=== PATIENT | female | born 1965 | race American Indian/Alaskan Native ===

== ENCOUNTER 2016-07-02 09:16 | Outpatient (CLI) | payer MEDICAID ==
[2016-07-02] MEDS ORDERED: XYLOCAINE TOPICAL 2% TP ONE ×2 (10:20→10:26)
== END 2016-07-02 09:17 | disposition home or self-care (01) ==
LOC: WOUND 09:16
PROVIDERS: ATTEND Podiatrist
DX: L97.921 Non-pressure chronic ulcer of unspecified part of left lower leg limited to breakdown of skin (principal); L97.521 Non-pressure chronic ulcer of other part of left foot limited to breakdown of skin; L97.311 Non-pressure chronic ulcer of right ankle limited to breakdown of skin
CPT/HCPCS: 11042; 11045; G0463

== ENCOUNTER 2016-08-13 09:52 | Outpatient (CLI) | payer MEDICAID ==
[2016-08-13] MEDS ORDERED: XYLOCAINE TOPICAL 4% TP ONE ×2 (10:56→11:16)
== END 2016-08-13 09:53 | disposition home or self-care (01) ==
LOC: WOUND 09:52
PROVIDERS: ATTEND Podiatrist
DX: L97.522 Non-pressure chronic ulcer of other part of left foot with fat layer exposed (principal); L97.312 Non-pressure chronic ulcer of right ankle with fat layer exposed; L97.323 Non-pressure chronic ulcer of left ankle with necrosis of muscle; L97.822 Non-pressure chronic ulcer of other part of left lower leg with fat layer exposed; M19.90 Unspecified osteoarthritis, unspecified site; Z89.431 Acquired absence of right foot

== ENCOUNTER 2016-08-20 09:58 | Outpatient (CLI) | payer MEDICAID ==
[2016-08-20] MEDS ORDERED: XYLOCAINE TOPICAL 4% TP ONE ×2 (10:27→14:02)
== END 2016-08-20 09:59 | disposition home or self-care (01) ==
LOC: WOUND 09:58
PROVIDERS: ATTEND Podiatrist
DX: L97.821 Non-pressure chronic ulcer of other part of left lower leg limited to breakdown of skin (principal); L97.311 Non-pressure chronic ulcer of right ankle limited to breakdown of skin; L97.321 Non-pressure chronic ulcer of left ankle limited to breakdown of skin; M19.90 Unspecified osteoarthritis, unspecified site; Z89.441 Acquired absence of right ankle

== ENCOUNTER 2016-08-27 10:17 | Outpatient (CLI) | payer MEDICAID ==
[2016-08-27] MEDS ORDERED: XYLOCAINE TOPICAL 4% TP ONE ×3 (11:06→13:11)
== END 2016-08-27 10:18 | disposition home or self-care (01) ==
LOC: WOUND 10:17
PROVIDERS: ATTEND Podiatrist
DX: L97.822 Non-pressure chronic ulcer of other part of left lower leg with fat layer exposed (principal); L97.312 Non-pressure chronic ulcer of right ankle with fat layer exposed; L97.323 Non-pressure chronic ulcer of left ankle with necrosis of muscle; M19.90 Unspecified osteoarthritis, unspecified site; Z89.421 Acquired absence of other right toe(s)

== ENCOUNTER 2016-09-10 09:48 | Outpatient (CLI) | payer MEDICAID ==
[2016-09-10] MEDS ORDERED: XYLOCAINE TOPICAL 2% TP ONE ×2 (10:13→10:25)
[2016-09-10] MEDS ORDERED: NACL 0.9% 500 ML IR ONE (10:48)
[2016-09-10] MEDS ORDERED: NACL 0.9% IR PRN (13:30)
== END 2016-09-10 09:49 | disposition home or self-care (01) ==
LOC: WOUND 09:48
PROVIDERS: ATTEND Podiatrist
DX: L97.822 Non-pressure chronic ulcer of other part of left lower leg with fat layer exposed (principal); L97.312 Non-pressure chronic ulcer of right ankle with fat layer exposed; L97.322 Non-pressure chronic ulcer of left ankle with fat layer exposed; L93.2 Other local lupus erythematosus; M19.90 Unspecified osteoarthritis, unspecified site; Z89.421 Acquired absence of other right toe(s)

== ENCOUNTER 2016-09-17 10:11 | Outpatient (CLI) | payer MEDICAID ==
[2016-09-17] MEDS ORDERED: XYLOCAINE TOPICAL 4% TP ONE ×2 (10:38→12:00)
[2016-09-17] MEDS ORDERED: XYLOCAINE TOPICAL 2% TP ONE (13:45)
== END 2016-09-17 10:12 | disposition home or self-care (01) ==
LOC: WOUND 10:11
PROVIDERS: ATTEND Podiatrist
DX: L97.312 Non-pressure chronic ulcer of right ankle with fat layer exposed (principal); L97.322 Non-pressure chronic ulcer of left ankle with fat layer exposed; L97.822 Non-pressure chronic ulcer of other part of left lower leg with fat layer exposed; L93.2 Other local lupus erythematosus; M19.90 Unspecified osteoarthritis, unspecified site; Z89.421 Acquired absence of other right toe(s)

== ENCOUNTER 2016-09-24 10:45 | Outpatient (CLI) | payer MEDICAID ==
[2016-09-24] MEDS ORDERED: XYLOCAINE TOPICAL 4% TP ONE ×2 (10:58→12:43)
== END 2016-09-24 10:46 | disposition home or self-care (01) ==
LOC: WOUND 10:45
PROVIDERS: ATTEND Podiatrist
DX: L97.311 Non-pressure chronic ulcer of right ankle limited to breakdown of skin (principal); L97.321 Non-pressure chronic ulcer of left ankle limited to breakdown of skin; L97.821 Non-pressure chronic ulcer of other part of left lower leg limited to breakdown of skin; L93.2 Other local lupus erythematosus; M19.90 Unspecified osteoarthritis, unspecified site

== ENCOUNTER 2020-07-01 06:57 | Emergency (ER) | payer MEDICAID ==
--- NOTE | 2020-07-01 07:19 | Event Note ---
ED Screening Note ED Screening Note: cc diarrhea LLE wound that she is unclear how she got it pt is sp r bka in March for a bone infection non well appearing she has stool on her gown debility does not know her meds This initial assessment/diagnostic orders/clinical plan/treatment(s) is/are subject to change based on patients health status, clinical progression and re- assessment by fellow clinical providers in the ED. Further treatment and workup at subsequent clinical providers discretion. Patient/guardian urged not to elope from the ED as their condition may be serious if not clinically assessed and managed. Initial orders include: labs/ xray
--- NOTE | 2020-07-01 08:34 | XRay Report ---
Left leg-4 views INDICATION: rle wound. COMPARISON: None. IMPRESSION: Diffusely osteopenic bones, with pretibial soft tissue wound in the mid shaft region but no periostitis or luciano bone destruction to suggest osteomyelitis. There is also severe pes planus, likely long-standing circumferential soft tissue swelling about the entire visualized leg given super imposed scattered dermal calcifications, and a radiopaque foreign body which has the appearance of a wire measuring 2.6 cm in length and tracking adjacent to the Achilles tendon along the posterior aspe ct of the distal leg. No acute fracture or malalignment. Advanced lateral compartment degenerative c hange in the knee. Signer Name: Taiwo Laguna MD Signed: 07/01/2020 8:30 AM Workstation Name: [id number]
[2020-07-01 10:34] LABS: Hematocrit 38.5 % (30.3-42.9); Hemoglobin 12.6 gm/dl (10.1-14.3); Mean Corpuscular HGB Conc 33 % (30-34); Mean Corpuscular Volume 95 fl (79-97); Platelet Count 219 K/mm3 (140-440); Red Blood Count 4.04 M/mm3 (3.65-5.03); Red Cell Distribution Width 15.8 % (13.2-15.2)
[2020-07-01 10:57] LABS: Blood Urea Nitrogen 16 mg/dL (7-17); Calcium 9.5 mg/dL (8.4-10.2); Hemolysis Index 6
[2020-07-01 11:21] LABS: BUN/Creatinine Ratio 23
[2020-07-01 11:29] LABS: Anisocytosis 1+; Total Cells Counted 50
[2020-07-01 11:30] LABS: Platelet Estimate Consistent w Auto
--- NOTE | 2020-07-01 13:22 | Emergency Department Report ---
ED General Adult HPI - General Chief complaint: Laceration/Recheck/Suture Stated complaint: LACERATION TO LEFT LEG Time Seen by Provider: 07/01/20 07:18 Source: patient Mode of arrival: Stretcher Limitations: Physical Limitation - History of Present Illness Initial comments: Patient is a 54-year-old female with history of lupus vasculitis who presents to the emergency department for evaluation of laceration sustained by unknown mechanism first noticed at 4 AM this morning when she was awoken by the bleeding. Patient notes she has ongoing antibiotics status post a right BKA done at [facility] in March with frequent wound care visits i ncluding later today and consequently has had chronic diarrhea. Patient denies known trauma, denies head injury. Patient states tetanus status is up-to-date. - Related Data Home Medications Medication Instructions Recorded Confirmed Last Taken Gabapentin 400 mg PO QID 08/10/14 04/17/15 Unknown Sertraline [Zoloft] 50 mg PO DAILY 08/10/14 04/17/15 Unknown predniSONE [Prednisone] 10 mg PO DAILY 08/10/14 04/17/15 Unknown Previous Rx's Medication Instructions Recorded Last Taken Type Oxycodone HCl/Acetaminophen 1 tab PO QID #20 tablet 08/16/14 Unknown Rx [Percocet 10/325 mg] fentaNYL [Duragesic] 25 mcg TD Q3D #10 patch 08/16/14 Unknown Rx Allergies Allergy/AdvReac Type Severity Reaction Status Date / Time aspirin Allergy Unknown Verified 03/21/13 11:05 ibuprofen Allergy Unknown Verified 05/31/14 17:25 Sulfa (Sulfonamide Allergy Unknown Verified 03/21/13 11:05 Antibiotics) ED Review of Systems ROS: Stated complaint: LACERATION TO LEFT LEG Other details as noted in HPI Comment: All other systems reviewed and negative ED Past Medical Hx - Past Medical History Hx Congestive Heart Failure: No Hx Diabetes: No Hx Arthritis: Yes (RHEUMATOID/LUPUS) Hx Asthma: No Hx COPD: No Additional medical history: 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 - Surgical History Additional Surgical History: right toe amputations - Social History Smoking Status: Never Smoker Substance Use Type: None - Medications Home Medications: Home Medications Medication Instructions Recorded Confirmed Last Taken Type Gabapentin 400 mg PO QID 08/10/14 04/17/15 Unknown History Sertraline [Zoloft] 50 mg PO DAILY 08/10/14 04/17/15 Unknown History predniSONE [Prednisone] 10 mg PO DAILY 08/10/14 04/17/15 Unknown History Oxycodone HCl/Acetaminophen 1 tab PO QID #20 tablet 08/16/14 04/17/15 Unknown Rx [Percocet 10/325 mg] fentaNYL [Duragesic] 25 mcg TD Q3D #10 patch 08/16/14 04/17/15 Unknown Rx ED Physical Exam - General Limitations: Physical Limitation General appearance: alert, in no apparent distress - Head Head exam: Present: atraumatic, normocephalic - Eye Eye exam: Present: normal appearance - ENT ENT exam: Present: mucous membranes moist - Neck Neck exam: Present: normal inspection - Respiratory Respiratory exam: Present: normal lung sounds bilaterally. Absent: respiratory distress - Cardiovascular Cardiovascular Exam: Present: regular rate, normal rhythm. Absent: systolic murmur, diastolic murmur, rubs, gallop - GI/Abdominal GI/Abdominal exam: Present: soft, normal bowel sounds - Extremities Exam Extremities exam: Present: other ((+) right BKA, (+) 10cm elliptical laceration to left anterior lower leg, (+) chronis venous discoloration right ankle) - Back Exam Back exam: Present: normal inspection - Neurological Exam Neurological exam: Present: alert, oriented X3 - Psychiatric Psychiatric exam: Present: normal affect, normal mood - Skin Skin exam: Present: warm, rash ED Course Vital Signs 07/01/20 07/01/20 07:15 13:47 Temperature 97.5 F L 98.9 F Pulse Rate 65 64 Respiratory 18 16 Rate Blood Pressure 144/100 Blood Pressure 151/96 [Right] O2 Sat by Pulse 98 100 Oximetry - Reevaluation(s) Reevaluation #1: 07/01/20 14:24 Patient states she chronically is leukopenic status post lupus and has weekly blood draw. Patient has consistent wound care follow-up including today. - Laceration /Wound Repair Left Lower Anterior Leg Wound Location: lower extremity Wound Length (cm): 10 Wound's Depth, Shape: flap, contused tissue Wound Explored: clean Irrigated w/ Saline (ccs): 30 Betadine Prep?: Yes Anesthesia: 1% Lidocaine Volume Anesthetic (ccs): 10 Wound Debrided: minimal Wound Repaired With: sutures Suture Size/Type: 4:0 Number of Sutures: 10 (mattress x 2 + interrupted) Layer Closure?: No Sterile Dressing Applied?: Yes ED Medical Decision Making - Lab Data Result diagrams: 07/01/20 09:42 07/01/20 09:42 Lab Results 07/01/20 07/01/20 Range/Units 09:42 09:42 WBC 1.5 L* (4.5-11.0) K/mm3 RBC 4.04 (3.65-5.03) M/mm3 Hgb 12.6 (10.1-14.3) gm/dl Hct 38.5 (30.3-42.9) % MCV 95 (79-97) fl MCH 31 (28-32) pg MCHC 33 (30-34) % RDW 15.8 H (13.2-15.2) % Plt Count 219 (140-440) K/mm3 Add Manual Diff Complete Total Counted 50 Seg Neuts % (Manual) 38.0 L (40.0-70.0) % Lymphocytes % (Manual) 52.0 H (13.4-35.0) % Monocytes % (Manual) 10.0 H (0.0-7.3) % Nucleated RBC % Not Reportable Seg Neutrophils # Man 0.6 L (1.8-7.7) K/mm3 Band Neutrophils # 0.0 K/mm3 Lymphocytes # (Manual) 0.8 L (1.2-5.4) K/mm3 Abs React Lymphs (Man) 0.0 K/mm3 Monocytes # (Manual) 0.2 (0.0-0.8) K/mm3 Eosinophils # (Manual) 0.0 (0.0-0.4) K/mm3 Basophils # (Manual) 0.0 (0.0-0.1) K/mm3 Metamyelocytes # 0.0 K/mm3 Myelocytes # 0.0 K/mm3 Promyelocytes # 0.0 K/mm3 Blast Cells # 0.0 K/mm3 WBC Morphology Not Reportable Hypersegmented Neuts Not Reportable Hyposegmented Neuts Not Reportable Hypogranular Neuts Not Reportable Smudge Cells Not Reportable Toxic Granulation Not Reportable Toxic Vacuolation Not Reportable Dohle Bodies Not Reportable Pelger-Huet Anomaly Not Reportable Eliane Rods Not Reportable Platelet Estimate Consistent w auto Clumped Platelets Not Reportable Plt Clumps, EDTA Not Reportable Large Platelets Not Reportable Giant Platelets Not Reportable Platelet Satelliting Not Reportable Plt Morphology Comment Not Reportable RBC Morphology Not Reportable Dimorphic RBCs Not Reportable Polychromasia Not Reportable Hypochromasia Not Reportable Poikilocytosis Not Reportable Anisocytosis 1+ Microcytosis Not Reportable Macrocytosis Not Reportable Spherocytes Not Reportable Pappenheimer Bodies Not Reportable Sickle Cells Not Reportable Target Cells Not Reportable Tear Drop Cells Not Reportable Ovalocytes Not Reportable Helmet Cells Not Reportable [place] Bodies Not Reportable [place] Rings Not Reportable [place] Cells Not Reportable Bite Cells Not Reportable Crenated Cell Not Reportable Elliptocytes Not Reportable Acanthocytes (Spur) Not Reportable Rouleaux Not Reportable Hemoglobin C Crystals Not Reportable Schistocytes Not Reportable Malaria parasites Not Reportable Thor Bodies Not Reportable Hem Pathologist Commnt No Sodium 145 (137-145) mmol/L Potassium 3.8 (3.6-5.0) mmol/L Chloride 110.6 H (98-107) mmol/L Carbon Dioxide 27 (22-30) mmol/L Anion Gap 11 mmol/L BUN 16 (7-17) mg/dL Creatinine 0.7 (0.6-1.2) mg/dL Estimated GFR > 60 ml/min BUN/Creatinine Ratio 23 % Glucose 70 (65-100) mg/dL Calcium 9.5 (8.4-10.2) mg/dL Vital Signs 07/01/20 07/01/20 07:15 13:47 Temperature 97.5 F L 98.9 F Pulse Rate 65 64 Respiratory 18 16 Rate Blood Pressure 144/100 Blood Pressure 151/96 [Right] O2 Sat by Pulse 98 100 Oximetry Critical care attestation.: If time is entered above; I have spent that time in minutes in the direct care of this critically ill patient, excluding procedure time. ED Disposition Clinical Impression: Leukopenia, Laceration of left lower leg Disposition: DC-01 TO HOME OR SELFCARE Is pt being admited?: No Condition: Stable Instructions: Laceration Care, Adult Additional Instructions: Follow-up with wound care as scheduled. Follow-up with primary care doctor or wound care in 10 to 14 days for suture removal. Return to the emergency department for worsening symptoms. Referrals: PRIMARY MD JACOB [Primary Care Provider] - 07/15/20
[2020-07-01] MEDS ORDERED: LIDOCAINE (1%) 10 MG/1 ML VIAL 20 ML MDV ONE (13:23)
[2020-07-01] MEDS ORDERED: LIDOCAINE (1%) 10 MG/1 ML VIAL 20 ML MDV INFILTRATI ONE (15:35)
[2020-07-01 17:24] VITALS: BP 149/93
== END 2020-07-01 17:54 | disposition home or self-care (01) ==
LOC: ED 06:57
DX: S81.812A Laceration without foreign body, left lower leg, initial encounter (principal); D72.819 Decreased white blood cell count, unspecified; M19.90 Unspecified osteoarthritis, unspecified site; Z79.899 Other long term (current) drug therapy; Z88.8 Allergy status to other drugs, medicaments and biological substances; X58.XXXA Exposure to other specified factors, initial encounter; Y93.89 Activity, other specified; Y92.89 Other specified places as the place of occurrence of the external cause; Y99.8 Other external cause status
CPT/HCPCS: 36415; 80048; 85007; 85025

== ENCOUNTER 2020-07-30 08:04 | Outpatient (CLI) | payer MEDICAID ==
[2020-07-30] MEDS ORDERED: LIDOCAINE (4%) 40 MG/ML TOPICAL SOLN 50 ML BOTTLE TP ONE (08:15)
[2020-07-30] MEDS ORDERED: VITAMIN A & D OINT 56.7 GM TP SCH (10:00)
== END 2020-07-30 08:05 | disposition home or self-care (01) ==
LOC: WOUND 08:04
PROVIDERS: ATTEND Surgery
DX: T87.89 Other complications of amputation stump (principal); L97.322 Non-pressure chronic ulcer of left ankle with fat layer exposed; L97.212 Non-pressure chronic ulcer of right calf with fat layer exposed; S81.802A Unspecified open wound, left lower leg, initial encounter; L93.2 Other local lupus erythematosus; M06.9 Rheumatoid arthritis, unspecified; I77.6 Arteritis, unspecified; Y83.5 Amputation of limb(s) as the cause of abnormal reaction of the patient, or of later complication, without mention of misadventure at the time of the procedure; X58.XXXA Exposure to other specified factors, initial encounter; Y93.89 Activity, other specified; Y92.238 Other place in hospital as the place of occurrence of the external cause; Y99.8 Other external cause status
CPT/HCPCS: 11042; A6250; G0463; 99215

== ENCOUNTER 2020-09-22 09:47 | Outpatient (CLI) | payer MEDICAID ==
[2020-09-22] MEDS ORDERED: LIDOCAINE (4%) 40 MG/ML TOPICAL SOLN 50 ML BOTTLE TP ONE (10:25)
== END 2020-09-22 09:48 | disposition home or self-care (01) ==
LOC: WOUND 09:47
PROVIDERS: ATTEND Surgery
DX: T87.89 Other complications of amputation stump (principal); L97.322 Non-pressure chronic ulcer of left ankle with fat layer exposed; L97.212 Non-pressure chronic ulcer of right calf with fat layer exposed; L97.222 Non-pressure chronic ulcer of left calf with fat layer exposed; L97.111 Non-pressure chronic ulcer of right thigh limited to breakdown of skin; S81.802D Unspecified open wound, left lower leg, subsequent encounter; L84 Corns and callosities; L93.2 Other local lupus erythematosus; M06.9 Rheumatoid arthritis, unspecified; I77.6 Arteritis, unspecified; Y83.5 Amputation of limb(s) as the cause of abnormal reaction of the patient, or of later complication, without mention of misadventure at the time of the procedure; X58.XXXD Exposure to other specified factors, subsequent encounter
CPT/HCPCS: 11042; G0463; 99214